=== PATIENT | female | born 1985 | race Caucasian/White ===

== ENCOUNTER → 2020-08-16 15:05 | Outpatient (CLI) | payer OTHER, SELFPAY ==
[2020-08-21 16:18] LABS: HPV Reflexed? NOT INDICATED
== END ==
PROVIDERS: PCP Family Medicine; Visit Provider Obstetrics & Gynecology
DX: Z12.4 Encounter for screening for malignant neoplasm of cervix (principal)
CPT/HCPCS: 88175; G0145

== ENCOUNTER 2021-04-03 17:07 | Outpatient (CLI) | payer OTHER, SELFPAY ==
[2021-04-03 17:12] VITALS: BP 137/73; PULSE 87; RESP 16; TEMP 36.6; O2SAT 100; BMI 29.7
[2021-04-03] MEDS: 0.9% Saline Lock 10 ML Syringe IV (18:00)
[2021-04-03 18:32] VITALS: BP 120/66; PULSE 69; RESP 16; TEMP 36.4; O2SAT 100
[2021-04-03 19:23] VITALS: BP 121/64; PULSE 67; RESP 16; TEMP 36.8; O2SAT 100
== END 2021-04-03 19:31 | disposition home or self-care (01) ==
LOC: MS3OUT 17:08 → MS3 17:36
PROVIDERS: PCP Family Medicine; Referring Provider Nurse Practitioner Adult Health; Visit Provider Nurse Practitioner Adult Health
DX: Z23 Encounter for immunization (principal); U07.1 COVID-19
CPT/HCPCS: J7050; M0245; Q0245; A4216

== ENCOUNTER 2021-05-09 18:20 | Emergency (ER) | payer OTHER, SELFPAY ==
[2021-05-09 18:20] VITALS: BP 164/77; PULSE 89; RESP 18; TEMP 35.6; O2SAT 99; BMI 29.7
--- NOTE | 2021-05-09 19:21 | EKG12_ITS ---
Test Reason : DYSRHYTHMIA Blood Pressure : / mmHG Vent. Rate : 062 BPM Atrial Rate : 062 BPM P-R Int : 134 ms QRS Dur : 094 ms QT Int : 394 ms P-R-T Axes : 054 020 022 degrees QTc Int : 399 ms Normal sinus rhythm Normal ECG Confirmed by JEROME DELAROSA, DIANNA ([id number]), acquisition editor MONIK WHITTINGTON ([id number]) on 05/15/2021 10:28:59 AM Referred By: REGIS Confirmed By:DIANNA CANO MD
--- NOTE | 2021-05-09 19:21 | CT_ITS ---
STUDY: CTA CHEST REASON FOR EXAM: Female, 35 years old. elevated d-dimer RADIATION DOSAGE (If Supplied By Facility): CTDIvol = ( 15.78 ) mGy, DLP = ( 378.91 ) mGycm TECHNIQUE: The examination was performed with the intravenous administration of IV 100mL Isovue-370. Post-processing of the angiographic images was performed, with multiplanar reformation and 3D reconstruction. Individualized dose optimization techniques were used for this CT. COMPARISON: None. FINDINGS: Normal enhancement of the main pulmonary artery and right and left pulmonary arteries. Normal enhancement of the bilateral peripheral pulmonary arteries. There is no demonstrated pulmonary embolism. Normal thoracic aorta and visualized great vessels. There is no demonstrated aortic dissection. Normal heart and pericardium. Normal mediastinum. Normal hilar regions. Normal visualized trachea and bronchi. The lungs are well expanded. Normal pulmonary parenchyma. Normal pleura. Normal chest wall structures. Normal osseous structures. Normal visualized upper abdomen. CT/CTA Chest W/WO Contrast IMPRESSION: Normal CTA chest examination, without a demonstrated pulmonary embolism or arterial dissection. Electronically Signed: Piter Thomas MD at 21:01 EST , Service support ,
--- NOTE | 2021-05-09 19:22 | EX.ED.DYSGE1 ---
HPI History of Present Illness Chief Complaint: Abn Labs Detail of Chief Complaint: Elevated D-dimer Informant: patient Narrative Narrative: Patient presents to the emergency department chief complaint of shortness of breath and chest discomfort ever since she had Covid in March. Patient states that she had a video visit with her primary care physician recently who ordered blood work that was done today. Patient was noted to have an elevated D-dimer and therefore was told to go to the emergency department. Patient complains of exertional dyspnea since having Covid. Patient states she is to be able to run marathons and now can barely go up steps. She has a occasional cough. She has occasional chest discomfort with cough and with significant activity. No history of PE or DVT. No other medical history otherwise. Prior similar symptoms: No PFSH PFSH Medical History (Updated 05/09/21 @ 21:[address] Annel Torrez, DO) COVID-19 Depression Home Medications buspirone [BuSpar] 5 mg PO TID 04/03/21 [History Last Taken Unknown] desvenlafaxine succinate [Pristiq] 100 mg PO DAILY 04/03/21 [History Last Taken Unknown] Allergy/AdvReac Type Severity Reaction Status Date / Time No Known Allergies Allergy Verified 05/09/21 18:22 Social History (System 11/02/20 @ 13:23 by Cassidy Sherwood) Smoking Status: Never smoker ROS ROS ED Constitutional Constitutional ED: Reports systems reviewed and no addt'l complaints, except as documented; Denies body ache(s), change in weight or chills Eyes Eyes: Denies acute decrease in peripheral vision, change in vision, double vision or loss of vision ENT ENT ED: Reports none; Denies ear pain, lip swelling, loss taste/smell, neck pain, otalgia or sore throat Cardiovascular Cardiovascular: Reports none and chest pain; Denies abdominal pain, chest pain with activity, leg edema, lightheadedness, palpitations, rapid heart rate or syncope Respiratory/Chest Respiratory/Chest: Reports none, cough, dyspnea and dyspnea on exertion; Denies change in mental status, dry cough, hemoptysis, shortness of breath at rest or shortness of breath with exertion Gastrointestinal Gastrointestinal: Reports none; Denies abdominal pain, change in stool character, diarrhea, hematemesis, hematochezia, melena, rectal bleeding or vomiting Genitourinary Genitourinary ED: Reports none; Denies abdominal discomfort, anuria, dysuria, genital pain or polyuria Musculoskeletal Musculoskeletal: Reports none; Denies arthralgias, back pain, difficulty walking, extremity pain, muscle weakness or myalgias Integumentary Reports none; Denies abscess or rash Neurologic Neurologic: Reports none; Denies abnormal gait, confusion, focal weakness, frequent falls, headache(s), loss of vision, numbness, paresthesias, radicular pain, vertigo or weakness Psychiatric Psychiatric: Reports systems reviewed and no addt'l complaints, except as documented and none; Denies behavioral changes, confusion, difficulty concentrating, hallucinations, suicidal ideation, tactile hallucinations or visual hallucinations Endocrine Endocrinology: Denies none, cold intolerance, excessive sweating, fatigue or heat intolerance Hematologic/Lymphatic Hematologic/Lymphatic: Reports none; Denies anemia, easy bleeding or easy bruising Allergic/Immunologic Allergic/Immunologic ED: Denies as per HPI, none, lip swelling, mouth swelling, throat swelling, tongue swelling or hives EXAM Physical Exam Const Vital Signs: 05/09/21 18:20 05/09/21 19:31 05/09/21 21:00 Temperature 96.1 F L Temperature Source Temporal Pulse Rate 89 88 79 Respiratory Rate 18 18 16 Respiratory Pattern Normal Blood Pressure 164/77 H 116/64 107/75 Blood Pressure Mean 106 81 85 Pulse Ox 99 100 100 Oxygen Delivery Method Room Air Room Air Room Air Positive well nourished and well developed General Appearance ED: well developed and NAD HEENT Reports TM's clear and moist mucous membranes normocephalic and atraumatic; Negative for trauma or tenderness Tympanic Membrane ED: Yes TM's clear Eyes PERRL and EOMs intact bilaterally General Eye ED: Negative for pale conjunctiva or scleral icterus Neck no lymphadenopathy, supple and no JVD General: Negative for tenderness Chest Wall inspection of chest normal and palpation of chest normal Chest: Negative for tenderness Resp normal respiratory effort and clear to auscultation bilaterally Effort and Inspection: Negative for respiratory distress or pain with movement Auscultation: Negative for rhonchi, wheezes or diminished lung sounds Cardio regular rate, regular rhythm, S1 normal heart sound, S2 normal heart sound and no murmurs Peripheral Pulses: pulses 2+ throughout GI normal to inspection, nondistended, normoactive bowel sounds, soft to palpation, non-tender, non-distended and no masses Back/Spine no CVA tenderness and no thoracic nor lumbar tenderness Extremity normal to inspection General Extremety ED: Negative for edema General Extremity: Negative for edema Neuro oriented x3, CN's II-XII intact bilaterally, no sensory deficits noted and gait normal Sensorium / Orientation: awake, alert, oriented to person, oriented to place and oriented to time Motor Exam: strength 5/5 throughout and strength abnormal Psych mental status grossly normal Skin no rashes or lesions noted and no wounds MDM MDM MDM Narrative Medical decision making narrative: IV line established on arrival. Patient had a CTA of the chest that was negative for PE or dissection. There is no pneumonias. This point I suspect her symptoms may be related to the Covid infection. We will refer patient to pulmonology for follow-up. Vital signs are normal and she is not hypoxic. Patient advised to return if increasing shortness of breath or conditions worsen anyway. Lab Data Labs: Laboratory Results - last 24 hr 05/09/21 19:26 Troponin I High Sens 5 Radiography Diagnostic Testing: Clinical Impression(s) from Imaging Studies Chest CTA 05/09/21 19:21 IMPRESSION: Normal CTA chest examination, without a demonstrated pulmonary embolism or arterial dissection. Electronically Signed: Piter Thomas MD at 21:01 EST , Service support , EKG Initial EKG: Attestation: I personally reviewed and interpreted this EKG as follows: Comments: Sinus rhythm with a ventricular rate of 62 bpm with no acute ST segment changes Discharge Plan Triage Chief Complaint: Abn Labs ED Provider: Annel Trorez Dx/Rx/DC Orders Clinical Impression: Acute dyspnea, Post-acute sequelae of COVID-19 (PASC) Instructions: ED Dyspnea Prescriptions: No Action buspirone [BuSpar] 5 mg Tablet 5 mg PO TID RF: 0 desvenlafaxine succinate [Pristiq] 100 mg Tablet Extended Release 24 Hr 100 mg PO DAILY RF: 0 Primary Care Provider: Walter Cowan Referrals: Dheeraj Figueroa DO [STAFF PHYSICIAN] - 3-5 Days Walter Cowan MD [Primary Care Provider] - Disposition Disposition: Home, Self Care
[2021-05-09] MEDS: 0.9% Normal Saline 1,000 ML 150 ML IV (19:30)
[2021-05-09 19:31] VITALS: BP 116/64; PULSE 88; RESP 18; O2SAT 100
[2021-05-09 19:53] LABS: Troponin-I HS 5 pg/mL (3.0-54.0)
[2021-05-09 21:00] VITALS: BP 107/75; PULSE 79; RESP 16; O2SAT 100
== END 2021-05-09 21:37 | disposition home or self-care (01) ==
PROVIDERS: Emergency Provider Emergency Medicine; PCP Family Medicine
DX: R06.00 Dyspnea, unspecified (principal); U09.9 Post COVID-19 condition, unspecified; R79.89 Other specified abnormal findings of blood chemistry; F32.A Depression, unspecified; Z79.899 Other long term (current) drug therapy
CPT/HCPCS: 71275; 84484; 93005; 99284; J7030; Q9967; A4216

== ENCOUNTER 2021-07-04 12:58 | Outpatient (CLI) | payer OTHER, SELFPAY ==
[2021-07-04] MEDS: Methacholine Chloride 18 ml neb kit INHALATION (13:13)
--- NOTE | 2021-07-05 07:50 | BRONCHALL ---
Bronchoprovocation Challenge Bronchoprovocation Challenge Bronchoprovocation Challenge: INTRODUCTION: The patient is a 35-year-old female who presents for a methacholine challenge secondary to a diagnosis of post Covid dyspnea. Spirometry data was acceptable and reproducible. The patient gave good effort with testing. INTERPRETATION: Initial spirometry did not show any large airways obstructive ventilatory defect with preserved airflows throughout. The patient was then given progressively increasing doses of methacholine in a standardized fashion. At the highest level, the patient did experience a 41% decrease in FEV1. The patient's PD 20 FEV1 was noted to be 0.583, consistent with borderline airway hyperresponsiveness. IMPRESSION: Positive methacholine challenge in a pattern consistent with borderline airway hyperresponsiveness. Clinical correlation is recommended.
== END 2021-07-04 23:59 | disposition home or self-care (01) ==
LOC: PSN 13:00
PROVIDERS: PCP Family Medicine
DX: U09.9 Post COVID-19 condition, unspecified (principal); R06.09 Other forms of dyspnea
CPT/HCPCS: 94070; 95070

== ENCOUNTER 2024-03-29 02:55 | Emergency (ER) | payer OTHER, SELFPAY ==
[2024-03-29 02:55] VITALS: BP 133/68; PULSE 63; RESP 16; TEMP 36.6; O2SAT 100; BMI 32.3
--- NOTE | 2024-03-29 03:17 | CT_ITS ---
EXAM: CT Abdomen And Pelvis W/ Contrast Injection HISTORY: RUQ pain TECHNIQUE: Routine protocol CT abdomen pelvis. IV Contrast: IV 100mL Isovue-300 . Oral Contrast: without. Sagittal and coronal images were reconstructed. RADIATION DOSAGE (If Supplied By Facility): CTDIvol = ( 15.64 ) mGy, DLP = ( 1136.51 ) mGycm Individualized dose optimization techniques were used for this CT. COMPARISON: None. LIMITATIONS: None. FINDINGS: LOWER CHEST: Lung bases are clear. LIVER: Unremarkable. GALLBLADDER/BILE DUCTS: Unremarkable. PANCREAS: Unremarkable. SPLEEN: Unremarkable. ADRENAL GLANDS: Unremarkable. KIDNEYS / URETERS: Unremarkable. BOWEL / MESENTERY: Unremarkable. No bowel obstruction. APPENDIX: Identified and normal. No evidence of acute appendicitis. PERITONEUM: No free air. No free fluid. VESSELS: Abdominal aorta is normal caliber. RETROPERITONEUM: Unremarkable. REPRODUCTIVE ORGANS: Unremarkable. Presumed contraceptive device in the uterine cervix. BLADDER: Unremarkable. ABDOMINAL WALL: Unremarkable. BONES: No acute abnormality. OTHER: None. CT/Abdomen/Pelvis W IV Cont ONLY IMPRESSION: No acute findings. Electronically Signed: Tania Guillermo MD at 4:56 EST ,
[2024-03-29] MEDS: HYDROmorphone 1 MG/ML Syringe IV (03:29)
[2024-03-29] MEDS: 0.9% Normal Saline (1000mL) 1,000 ML 999 ML IV (03:29)
[2024-03-29] MEDS: Ondansetron 4 MG/2 ML Vial IV (03:29)
[2024-03-29 03:36] LABS: Absolute Lymphocyte Count 3.15 X10^3/uL (0.83-4.51); Absolute Neutrophil Count 4.7 X10^3/uL (2.0-7.7); Basophil# 0.06 X10^3/uL; Basophil% 0.7 % (0-1); Eosinophil# 0.18 X10^3/uL; Eosinophils% 2.1 % (0-5); Hematocrit 38.1 % (37-47); Hemoglobin 13.1 g/dL (12.0-15.0); Lymphocyte # 3.15 X10^3/ul (0.83-4.51); Lymphocyte % 36.6 % (19-41); Mean Corp Hgb Conc 34.4 g/dL (32-36); Mean Corpuscular Volume 87.4 fL (81-99); Mean Platelet Vol. 11.3 fl (6.2-12.0); Monocyte# 0.48 X10^3/uL; Monocyte% 5.6 % (0-10); NRBC Flagged by Analyzer 0 % (0-5); Neutrophil # 4.71 X10^3/uL (2.7-7.7); Neutrophil % 54.7 % (47-70); Platelet Count 252 K/mm3 (150-450); RBC Distribution Width CV 12.3 % (11.6-14.6); RBC Distribution Width SD 39.2 fl (35.1-43.9); Red Blood Count 4.36 M/mm3 (4.2-5.4); White Blood Count 8.6 K/mm3 (4.4-11.0)
[2024-03-29 03:44] LABS: Internal QC Validated? YES +Cl - CLEAR BKGD; Pregnancy, Serum, hCG Quali. NEGATIVE Negative; Record Kit Lot#, Serum Preg. 869294
[2024-03-29] MEDS: Haloperidol Lactate 5 MG/ML Vial IV (03:46)
[2024-03-29] MEDS: DiphenhydrAMINE 50 MG/ML Syringe 25 MG IV (03:46)
[2024-03-29 03:53] LABS: AST(SGOT) 10 U/L (15-37); Alanine Aminotransfer ALT/SGPT 14 U/L (13-56); Alkaline Phosphatase 90 U/L (45-117); Anion Gap 6 (5-15); BUN 13 mg/dL (7-18); Bilirubin, Direct 0.07 mg/dL (0.00-0.30); Calcium,Total 8.2 mg/dL (8.5-10.1); Chloride 110 mmol/L (98-107); Creatinine, Serum 0.81 mg/dL (0.55-1.02); EST Glomerular Filtration Rate 83 mL/min (>60); Est Glom Filt Rate - Afr Amer 101 mL/min (>60); Estimated Creatinine Clearance 109.64 ml/min; Globulin 3.7 g/dL (2.2-4.2); Glucose 142 mg/dL (74-106); Lipase 60 U/L (13-75); Potassium 3.6 mmol/L (3.5-5.1); Protein, Total 6.7 g/dL (6.4-8.2); Sodium Level 136 mmol/L (136-145)
[2024-03-29 04:55] VITALS: BP 119/77; PULSE 81; RESP 14; O2SAT 97
--- NOTE | 2024-03-29 05:30 | EX.ED.DYSGE1 ---
HPI History of Present Illness Chief Complaint: Abd Pain Informant: patient and spouse/S.O. Narrative Narrative: Patient is a 38-year-old female with past medical history of depression. She states that she developed increasing right upper quadrant abdominal pain this evening after dinner. She reports there is nausea without vomiting. She denies any trauma or excessive activity. She denies any concern for . She states that she had been looking online and was concerned this was her gallbladder and secondary to the persistent pain comes in for evaluation. [facility] Medical History (Updated 03/31/24 @ 05:[address] Paddy Nieves, DO) Depression COVID-19 Home Medications ?Medication ?Instructions ?Recorded ?Last Taken ?Type desvenlafaxine succinate 100 mg 100 mg PO DAILY 04/03/21 Unknown History tablet,extended release 24 hr (Pristiq) dextroamphetamine-amphetamine 10 1 tab PO DAILY 03/29/24 Unknown History mg tablet dextroamphetamine-amphetamine ER 1 cap PO DAILY 03/29/24 Unknown History 20 mg 24hr capsule,extend release ergocalciferol (vitamin D2) 1,250 1,250 mcg PO QWEEK 03/29/24 Unknown History mcg (50,000 unit) capsule etonogestrel 0.12 mg-ethinyl 1 vag ring vaginal Q21D 03/29/24 Unknown History estradiol 0.015 mg/24 hr vaginal ring (EluRyng) lamotrigine 200 mg tablet 100 mg PO DAILY 03/29/24 Unknown History ondansetron 4 mg disintegrating 4 mg PO TID PRN nausea and 03/29/24 Unknown Rx tablet vomiting #21 tabs oxycodone 5 mg tablet 5 mg PO Q6H PRN pain 3 days #12 03/29/24 Unknown Rx tabs trazodone 50 mg tablet 50 mg PO QHS 03/29/24 Unknown History Allergy/AdvReac Type Severity Reaction Status Date / Time No Known Allergies Allergy Verified 03/29/24 02:56 Social History (System 11/02/20 @ 13:23 by Cassidy Sherwood) Smoking Status: Never smoker ROS ROS ED Constitutional Constitutional ED: Denies chills or fever(s) Eyes Eyes: Denies change in vision ENT ENT ED: Denies sore throat Cardiovascular Cardiovascular: Denies chest pain Respiratory/Chest Respiratory/Chest: Denies cough or dyspnea Gastrointestinal Gastrointestinal: Reports abdominal pain and nausea; Denies diarrhea or vomiting Genitourinary Genitourinary ED: Denies dysuria or hematuria Musculoskeletal Musculoskeletal: Denies myalgias Integumentary Denies rash Neurologic Neurologic: Denies headache(s) Psychiatric Psychiatric: Reports depression Hematologic/Lymphatic Hematologic/Lymphatic: Denies easy bleeding or easy bruising EXAM Physical Exam Const Vital Signs: 03/29/24 02:55 03/29/24 04:55 Temperature 98 F Temperature Source Oral Pulse Rate 63 81 Respiratory Rate 16 14 Blood Pressure 133/68 H 119/77 Blood Pressure Mean 89 91 Pulse Ox 100 97 Oxygen Delivery Method Room Air Positive well nourished, well developed and obese General Appearance ED: well developed; Negative for pallor Nutritional Appearance: obese HEENT Reports moist mucous membranes HEENT Narrative: No tongue or lip swelling no oral lesions no airway edema or compromise No signs of infection noted in the posterior pharynx Eyes PERRL and EOMs intact bilaterally General Eye ED: Negative for scleral icterus Neck supple Neck Narrative: No nuchal rigidity or meningeal signs Resp normal respiratory effort and clear to auscultation bilaterally Cardio regular rate and regular rhythm Rate: other Other Details: Regular rate and rhythm without murmurs rubs or gallops Radial and carotid pulses are equal and symmetric GI non-distended and no masses GI Narrative: Abdomen is soft and nondistended with normal active bowel sounds. There is pain with palpation in the right upper quadrant with slight voluntary guarding at this site. However negative Caro sign. No pulsatile mass or fluid wave Auscultation: normoactive bowel sounds Palpation: soft Back/Spine no CVA tenderness Extremity normal to inspection Neuro oriented x3, CN's II-XII intact bilaterally and no sensory deficits noted Sensorium / Orientation: alert Motor Exam: strength 5/5 throughout Psych Mood & Affect: depressed Skin no rashes or lesions noted and no wounds General Skin Exam: Negative for jaundice or pallor MDM MDM MDM Narrative Medical decision making narrative: Patient arrived to the ER with stable vitals and a nonsurgical abdomen. Differential diagnosis is for biliary colic versus acute cholecystitis versus pancreatitis versus complication versus potential infection such as colitis or diverticulitis. Therefore basic labs and a CT scan with IV contrast were obtained. Labs revealed no clinically significant findings and CT scan revealed no signs of cholecystitis pancreatitis or cholelithiasis. After receiving medication here the patient's pain resolved. On reevaluation her abdomen remains soft and nonsurgical. Therefore based on the patient's age and presentation there is high likelihood this was biliary colic however as she does not have signs of acute cholecystitis or acute pancreatitis and her pain is resolved there is no need for admission or further workup in the ER. She will be prescribed a outpatient gallbladder ultrasound to further assess the cause of her symptoms. She understands she may need to have further evaluation by a surgeon and/or a HIDA scan to further check the cause of her abdominal pain but at this time as there is no signs of acute infection or obstruction and her pain is resolved with treatment she is otherwise safe for discharge History & Record Review Discussion w/independent historian: Patient and Significant other Lab Data Attestation: I reviewed the patient's lab results. Labs: Laboratory Results - last 24 hr 03/29/24 03:26 WBC 8.6 RBC 4.36 Hgb 13.1 Hct 38.1 MCV 87.4 MCH 30.0 MCHC 34.4 RDW Std Deviation 39.2 RDW Coeff of Guy 12.3 Plt Count 252 MPV 11.3 Immature Gran % (Auto) 0.300 Neut % (Auto) 54.7 Lymph % (Auto) 36.6 [place] % (Auto) 5.6 Eos % (Auto) 2.1 Baso % (Auto) 0.7 Absolute Neuts (auto) 4.7 Absolute Lymphs (auto) 3.15 Nucleated RBC % 0 Sodium 136 Potassium 3.6 Chloride 110 H Carbon Dioxide 21.0 Anion Gap 6 BUN 13 Creatinine 0.81 Estim Creat Clear Calc 109.64 Est GFR (MDRD) Af Amer 101 Est GFR (MDRD) Non-Af 83 BUN/Creatinine Ratio 16.0 Glucose 142 H Calcium 8.2 L Total Bilirubin 0.30 Direct Bilirubin 0.07 AST 10 L ALT 14 Alkaline Phosphatase 90 Total Protein 6.7 Albumin 3.0 L Globulin 3.7 Lipase 60 Serum , Qual NEGATIVE Radiography Diagnostic Testing: Clinical Impression(s) from Imaging Studies Abdomen/Pelvis CT 03/29/24 03:17 IMPRESSION: No acute findings. Electronically Signed: Tania Guillremo MD at 4:56 EST , Discharge Plan Triage Chief Complaint: Abd Pain ED Provider: Paddy Nieves Dx/Rx/DC Orders Clinical Impression: Biliary colic, BMI 29.0-29.9,adult, Depression Instructions: Abdominal Pain, ED Abdominal Pain Gallstone Poss Prescriptions: New ondansetron 4 mg tablet,disintegrating 4 mg PO TID PRN (Reason: nausea and vomiting) Qty: 21 0RF oxycodone 5 mg tablet 5 mg PO Q6H PRN (Reason: pain) 3 Days Qty: 12 0RF No Action desvenlafaxine succinate [Pristiq] 100 mg Tablet Extended Release 24 Hr 100 mg PO DAILY dextroamphetamine-amphetamine 10 mg tablet 1 tab PO DAILY dextroamphetamine-amphetamine 20 mg capsule,extended release 24hr 1 cap PO DAILY ergocalciferol (vitamin D2) 1,250 mcg (50,000 unit) capsule 1,250 mcg PO QWEEK etonogestrel-ethinyl estradiol [EluRyng] 0.12-0.015 mg/24 hr ring 1 vag ring vaginal Q21D lamotrigine 200 mg tablet 100 mg PO DAILY trazodone 50 mg tablet 50 mg PO QHS Stand Alone Forms: ED Work / School Excuse Other Ambulatory Orders: Gallbladder (Routine) Facility: [facility] - Location: [facility] Ordered By: Dr. Paddy Nieves Primary Care Provider: Walter Cowan Referrals: Walter Cowan MD [Primary Care Provider] - Activity Restrictions/Additional Instructions: Your history and exam is concerning for a gallbladder spasm. Eat a bland diet and do smaller portions more often throughout the day to prevent flareup. If the pain does return try taking the Percocet as prescribed and if pain resolves he may stay home. However if there is no improvement of the pain or he develop a fever or have any further concerns and return to the ER for repeat evaluation. Otherwise obtain the outpatient ultrasound as directed to further assess your gallbladder. If symptoms persist despite a negative ultrasound you may need a HIDA scan and therefore talk to your family doctor about this study if needed Print Language: Luxembourger Disposition Disposition: Home, Self Care Discharge Date/Time: 03/29/24 05:43
[2024-03-29] MEDS: oxyCODONE 5 MG Tablet 10 MG PO (05:38)
[2024-03-29 05:42] VITALS: BP 114/73; PULSE 72; RESP 18; TEMP 36.7; O2SAT 100
== END 2024-03-29 05:43 | disposition home or self-care (01) ==
PROVIDERS: Emergency Provider Emergency Medicine; PCP Family Medicine; Visit Provider Emergency Medicine
DX: K80.50 Calculus of bile duct without cholangitis or cholecystitis without obstruction (principal); F32.A Depression, unspecified; E66.9 Obesity, unspecified; Z86.16 Personal history of COVID-19; Z68.29 Body mass index [BMI] 29.0-29.9, adult
CPT/HCPCS: 74177; 80048; 80076; 83690; 84703; 85025; 96361; 96374; 96375; 96376; 99283; J7030; Q9967; A4216; J2405

== ENCOUNTER → 2024-04-02 | Outpatient (CLI) | payer OTHER, SELFPAY ==
--- NOTE | 2024-04-02 09:20 | US_ITS ---
EXAM: US ABDOMEN LIMITED, RIGHT UPPER QUADRANT CLINICAL INDICATION: RUQ pain TECHNIQUE: Real-time ultrasound of the right upper quadrant with image documentation. COMPARISON: No relevant prior studies available. FINDINGS: LIVER: Normal. There is normal echotexture. No focal hepatic lesion. No intrahepatic biliary ductal dilation. GALLBLADDER: Solitary 12 mm gallstone. No gallbladder wall thickening is demonstrated. No pericholecystic fluid. Negative sonographic Caro''s sign. COMMON BILE DUCT: Unremarkable as visualized. The proximal common bile duct is normal size. PANCREAS: Unremarkable as visualized. No focal abnormality is demonstrated in the pancreas. No pancreatic ductal dilatation. RIGHT KIDNEY: Normal. There is no hydronephrosis. No shadowing calculus. No focal lesion or perinephric collection is demonstrated. US/Gallbladder IMPRESSION: Cholelithiasis. Electronically Signed: Joseph Price MD at 10:19 EST ,
== END | disposition home or self-care (01) ==
PROVIDERS: PCP Family Medicine; Referring Provider Emergency Medicine; Visit Provider Emergency Medicine
DX: R10.11 Right upper quadrant pain (principal)
CPT/HCPCS: 76705